=== PATIENT | male | born 1990 | race Two or more races ===

== ENCOUNTER 2023-05-06 11:33 | Outpatient (CLI) | payer OTHER | END 2023-05-06 11:45 | disposition home or self-care (01) | LOC: SONOGRAMA 11:33 | PROVIDERS: ATTEND Pathology Anatomic Pathology & Clinical Pathology | DX: E04.2 Nontoxic multinodular goiter (principal); D34 Benign neoplasm of thyroid gland ==

== ENCOUNTER 2025-03-12 11:51 | Outpatient (CLI) | payer OTHER | END 2025-03-12 11:54 | disposition home or self-care (01) | LOC: SONOGRAMA 11:51 | PROVIDERS: ATTEND Pathology Anatomic Pathology | DX: D34 Benign neoplasm of thyroid gland (principal); E07.89 Other specified disorders of thyroid; E04.2 Nontoxic multinodular goiter ==